=== PATIENT | male | born 1965 | race African-American/Black ===

== ENCOUNTER 2017-04-08 18:54 | Emergency (ER) | payer OTHER | END 2017-04-08 22:15 | disposition home or self-care (01) | LOC: FER 18:54 | DX: S06.0X9A Concussion with loss of consciousness of unspecified duration, initial encounter (principal); H05.20 Unspecified exophthalmos; E11.9 Type 2 diabetes mellitus without complications; Z79.84 Long term (current) use of oral hypoglycemic drugs; W21.03XA Struck by baseball, initial encounter | CPT/HCPCS: 70450 ==